=== PATIENT | female | born 1970 | race Caucasian/White ===

== ENCOUNTER 2017-11-12 00:36 | Inpatient (IN) | END 2017-11-13 13:42 | disposition home or self-care (01) | DRG 395 ==

== ENCOUNTER 2018-02-03 09:25 | Emergency (ER) | END 2018-02-03 12:56 | disposition home or self-care (01) ==

== ENCOUNTER 2018-02-23 13:06 | Emergency (ER) | END 2018-02-23 14:09 | disposition home or self-care (01) ==

== ENCOUNTER 2018-02-27 14:33 | Emergency (ER) | END 2018-02-27 18:45 | disposition home or self-care (01) ==

== ENCOUNTER 2018-10-27 08:04 | Day surgery (SDC) | payer OTHER ==
[~2018-10-27] VITALS: Ht 157.5 cm; Wt 54.6 kg
[~2018-10-27 08:04] MED LIST: ACET500C5 PO; CIPR500T4 PO; LORA-441 PO; MECL-77 PO; METR-121 PO; ONDA4TAB8 PO
[2018-10-27] MEDS ORDERED: NOL20 PO (09:14)
[2018-10-27] MEDS ORDERED: CHOL400T10 PO (09:14)
[2018-10-27] MEDS ORDERED: ATOR20TA38 PO (09:14)
[2018-10-27 09:15] VITALS: Ht 157.5 cm; Wt 54.6 kg
--- NOTE | 2018-10-27 11:24 | PREAC ---
Date/Time of Note Date/Time of Note DATE: 10/27/18 TIME: 11:23 Anesthesia Eval and Record Evaluation Time Pre-Procedure Interview DATE: 10/27/18 TIME: 11:23 Age 48 Sex female NPO: 8 hrs Preoperative diagnosis Screening Planned procedure Colonoscopy Past Medical History Past Medical History: Includes Cardio: Dyslipidemia Endo: Other (Hx of Breast Cancer) Surgery & Anesthesia Issues No known issue Meds Anticoagulation: No Beta Edis within 24 hr: No Reason Beta Edis not given: Pt. not on B-Edis Reported Medications Cholecalciferol* (Vitamin D*) 400 Unit Tablet, 800 UNIT PO DAILY, TAB 10/27/18 Atorvastatin Calcium* (Atorvastatin Calcium*) 20 Mg Tablet, 20 MG PO QHS, #30 TAB 10/27/18 Tamoxifen Citrate* (Tamoxifen Citrate*) 20 Mg Tab, 20 MG PO DAILY, TAB 10/27/18 Discontinued Scripts Ondansetron Hcl* (Zofran*) 4 Mg Tablet, 4 MG PO Q8 PRN for NAUSEA, #30 TAB Prov:KAYLEIGH BILLINGS DO 02/27/18 Meclizine Hcl* (Meclizine Hcl*) 25 Mg Tablet, 50 MG PO BID PRN for dizziness, #30 TAB Prov:KAYLEIGH BILLINGS DO 02/27/18 Lorazepam* (Ativan*) 0.5 Mg Tablet, 0.5 MG PO Q8 PRN for DIZZY, #14 TAB Prov:JUNE GREGORY MD 02/23/18 Acetaminophen* (Tylophen*) 500 Mg Capsule, 1 CAP PO Q6H PRN for PAIN AND OR ELEVATED TEMP, #30 CAP Prov:CARLTON LONDON PA-C 02/03/18 Metronidazole (Flagyl) 500 Mg Tab, 500 MG PO Q8 for 7 Days, #21 TAB Prov:DOROTA PINEDA MD 11/13/17 Ciprofloxacin Hcl* (Ciprofloxacin Hcl*) 500 Mg Tablet, 500 MG PO BID for 7 Days, #14 TAB Prov:DOROTA PINEDA MD 11/13/17 Meds reviewed: Yes Allergies Coded Allergies: No Known Allergy (Unverified , 11/12/17) Allergies Reviewed: Yes Labs/Studies Labs Reviewed: Reviewed by anesthesiologist test: N/A Studies: ECG (n/a), CXR (n/a) Pre-procedure Exam Airway: Adequate mouth opening, Adequate thyromental dist Mallampati: Mallampati II Teeth: Normal Lung: Normal Heart: Normal ASA Physical Status ASA physical status: 2 Emergency: None Planned Anesthetic General/MAC: MAC Planned Pain Management Parenteral pain med Pre-operative Attestations Prior to commencing anesthesia and surgery, the patient was re-evaluated, there was verification of: *The patient's identity *The results of appropriate recent lab work and preoperative vital signs *The above evaluation not changing prior to induction *Anesthetic plan, risk benefits, alternative and complications discussed with patient/family; questions answered; patient/family understands, accepts and wishes to proceed. FRANCIS WRIGHT MD Oct 27, 2018 11:24
[2018-10-27 11:32] VITALS: BP 131/68; PULSE 68; RESP 16
[2018-10-27] MEDS ORDERED: PROPOFOL 40 ML ONE (11:55)
--- NOTE | 2018-10-27 11:56 | PAC ---
Date/Time of Note Date/Time of Note DATE: 10/27/18 TIME: 11:56 Post-Anesthesia Notes Post-Anesthesia Note Last documented vital signs Vital Signs Date Temp Pulse Resp B/P (MAP) Pulse Ox O2 O2 Flow FiO2 Time Delivery Rate 10/27/18 98.0 68 16 131/68 98 Room Air 12:03 (89) Activity: WNL Respiratory function: WNL Cardiovascular function: WNL Mental status: Baseline Pain reasonably controlled: Yes Hydration appropriate: Yes Nausea/Vomiting absent: Yes FRANCIS WRIGHT MD Oct 27, 2018 11:56
[2018-10-27 12:39] VITALS: BP 146/72; RESP 20
== END 2018-10-27 14:04 | disposition home or self-care (01) ==
LOC: GIL 08:04
PROVIDERS: ATTEND Internal Medicine Gastroenterology
DX: Z12.11 Encounter for screening for malignant neoplasm of colon (principal); K64.8 Other hemorrhoids; E78.5 Hyperlipidemia, unspecified
CPT/HCPCS: 45378; Z7610